=== PATIENT | male | born 1985 | race Caucasian/White ===

== ENCOUNTER 2018-11-30 05:03 | Observation (INO) | payer BC, OTHER ==
[2018-11-30] MEDS ORDERED: ONDANSETRON HCL INJ/PF 4 MG/2 ML SDV IV ONE (05:31)
[2018-11-30] MEDS ORDERED: MORPHINE SULFATE 10 MG/ML INJ IV ONE (05:31)
[2018-11-30] MEDS ORDERED: NORMAL SALINE 1000 ML 1,000 ML IV ONE (05:31)
[2018-11-30 05:51] LABS: ABSOLUTE BASOPHILS # (AUTO) 0.1 10^3/uL (0.0-0.2); ABSOLUTE EOSINOPHILS # (AUTO) 0.3 10^3/uL (0.0-0.6); ABSOLUTE LYMPHOCYTES (AUTO) 2.9 10^3/uL (0.5-4.7); ABSOLUTE MONOCYTES (AUTO) 0.9 10^3/uL (0.1-1.4); ABSOLUTE NEUT (AUTO) 9.4 10^3/uL (1.7-8.2); BASOPHILS % (AUTO) 0.4 % (0-2); EOSINOPHILS % (AUTO) 2.2 % (0-6); HEMATOCRIT 44.4 % (37.9-51.0); HEMOGLOBIN 15.2 g/dL (13.5-17.0); LYMPHOCYTES % (AUTO) 21.4 % (13-45); MEAN CORPUSCULAR HEMOGLOBIN 30.7 pg (27.0-33.4); MEAN CORPUSCULAR HGB CONC 34.3 g/dL (32.0-36.0); MEAN CORPUSCULAR VOLUME 89 fl (80-97); MONOCYTES % (AUTO) 6.9 % (3-13); PLATELET COUNT 284 10^3/uL (150-450); RED BLOOD COUNT 4.96 10^6/uL (4.35-5.55); SEGMENTED NEUTROPHILS % (AUTO) 69.1 % (42-78); TOTAL CELLS COUNTED % (AUTO) 100 %; WHITE BLOOD COUNT 13.6 10^3/uL (4.0-10.5)
[2018-11-30 06:09] LABS: ALANINE AMINOTRANSFERASE 28 U/L (21-72); ALBUMIN 3.9 g/dL (3.5-5.0); ALKALINE PHOSPHATASE 59 U/L (38-126); ANION GAP 8 (5-19); ASPARTATE AMINO TRANSFERASE 22 U/L (17-59); BILIRUBIN,DIRECT 0.2 mg/dL (0.0-0.4); BILIRUBIN,TOTAL 0.3 mg/dL (0.2-1.3); BLOOD UREA NITROGEN 7 mg/dL (7-20); CALCIUM 9.5 mg/dL (8.4-10.2); CARBON DIOXIDE 25 mmol/L (22-30); CHLORIDE 109 mmol/L (98-107); GLUCOSE 115 mg/dL (75-110); POTASSIUM 4.1 mmol/L (3.6-5.0)
[2018-11-30] MEDS ORDERED: HYDROMORPHONE HCL INJ/PF 2 MG/ML AMPULE IV ONE ×2 (06:24→07:33)
--- NOTE | 2018-11-30 06:34 | RADIOLOGY REPORT (SQ) ---
EXAM DESCRIPTION: US ABDOMEN LIMITED COMPLETED DATE/TME: 11/30/2018 05:32 CLINICAL HISTORY: RUQ pain, vomiting COMPARISON: None. TECHNIQUE: Real-time sonographic images of the right upper abdomen were obtained using a curved multihertz transducer. FINDINGS: Pancreas: The visualized portions of the pancreas are unremarkable. Vascular: The visualized portions of the aorta and IVC are unremarkable. Liver: The liver has normal contour and increased echogenicity. Hepatopedal flow in the portal vein. Findings confirmed with color and spectral Doppler imaging. The common bile duct measures 0.5 cm. Gallbladder: Echogenic structure in the gallbladder neck region compatible with a nonmobile gallstone. Possible reported sonographic Mullen sign. Echogenic layering material likely representing sludge. No gallbladder wall thickening. No pericholecystic fluid identified. Right Kidney: The right kidney measures 11.5 cm in length. No hydronephrosis, solid renal mass, or shadowing calculi. IMPRESSION: 1. Cholelithiasis with positive reported sonographic Mullen sign and gallbladder sludge. These findings could be seen with but are not diagnostic for acute cholecystitis. 2. Hepatic steatosis.
--- NOTE | 2018-11-30 07:33 | ER Document Report ---
ED GI/ - General Chief Complaint: Abdominal Pain Stated Complaint: ABDOMINAL PAIN, VOMITTING Time Seen by Provider: 11/30/18 05:30 Mode of Arrival: Ambulatory Information source: Patient Notes: Patient is a 33-year-old male presented to the emergency department with chief complaint of right upper quadrant pain that radiates through to his back that started at about 3 PM yesterday. Patient reports he has vomited at least 8-10 times prior to arrival. Patient denies any known medical history but does report that he has had similar pains in the past however he states they were not as severe. He denies any fevers or diarrhea. He does report prior to the onset of pain he did have a greasy meal. TRAVEL OUTSIDE OF THE [place] IN LAST 30 DAYS: No - Related Data Allergies/Adverse Reactions: No Known Allergies Allergy (Verified 03/14/12 09:00) Past Medical History - General Information source: Patient - Social History Smoking Status: Never Smoker Frequency of alcohol use: None Drug Abuse: None Family History: Reviewed & Not Pertinent Patient has suicidal ideation: No Patient has homicidal ideation: No - Medical History Medical History: Negative Renal/ Medical History: Denies: Hx Peritoneal Dialysis Surgical Hx: Negative - Immunizations Immunizations up to date: Yes Review of Systems - Review of Systems Constitutional: No symptoms reported EENT: No symptoms reported Cardiovascular: No symptoms reported Respiratory: No symptoms reported Gastrointestinal: Abdominal pain, Nausea, Vomiting Genitourinary: No symptoms reported Male Genitourinary: No symptoms reported Musculoskeletal: No symptoms reported Skin: No symptoms reported Hematologic/Lymphatic: No symptoms reported Neurological/Psychological: No symptoms reported Physical Exam - Vital signs Vitals: Temp Pulse Resp BP Pulse Ox 97.4 F 80 20 147/89 H 98 11/30/18 05:08 11/30/18 05:08 11/30/18 05:08 11/30/18 05:08 11/30/18 05:08 - Notes Notes: PHYSICAL EXAMINATION: GENERAL: Healthy appearing male doubled over vomiting. HEAD: Atraumatic, normocephalic. EYES: Pupils equal round and reactive to light, extraocular movements intact, sclera anicteric, conjunctiva are normal. ENT: Nares patent, oropharynx clear without exudates. Moist mucous membranes. NECK: Normal range of motion, supple without lymphadenopathy LUNGS: Breath sounds clear to auscultation bilaterally and equal. No wheezes rales or rhonchi. HEART: Regular rate and rhythm without murmurs ABDOMEN: Soft, nondistended abdomen. Tenderness to the right upper quadrant, positive Mullen sign. No masses appreciated. Musculoskeletal: Normal range of motion, no pitting or edema. No cyanosis. NEUROLOGICAL: Cranial nerves grossly intact. Normal speech, normal gait. Normal sensory, motor exams PSYCH: Normal mood, normal affect. SKIN: Warm, Dry, normal turgor, no rashes or lesions noted. Course - Re-evaluation Re-evalutation: 11/30/18 07:30 Laboratory 11/30/18 11/30/18 05:25 05:25 WBC 13.6 H RBC 4.96 Hgb 15.2 Hct 44.4 MCV 89 MCH 30.7 MCHC 34.3 RDW 14.0 Plt Count 284 Seg Neutrophils % 69.1 Lymphocytes % 21.4 Monocytes % 6.9 Eosinophils % 2.2 Basophils % 0.4 Absolute Neutrophils 9.4 H Absolute Lymphocytes 2.9 Absolute Monocytes 0.9 Absolute Eosinophils 0.3 Absolute Basophils 0.1 Sodium 142.4 Potassium 4.1 Chloride 109 H Carbon Dioxide 25 Anion Gap 8 BUN 7 Creatinine 0.82 Est GFR ( Amer) > 60 Est GFR (Non-Af Amer) > 60 Glucose 115 H Calcium 9.5 Total Bilirubin 0.3 Direct Bilirubin 0.2 Neonat Total Bilirubin Not Reportable Neonat Direct Bilirubin Not Reportable Neonat Indirect Bili Not Reportable AST 22 ALT 28 Alkaline Phosphatase 59 Total Protein 6.0 L Albumin 3.9 Lipase 152.0 Abdomen Ultrasound 11/30/18 05:32 IMPRESSION: 1. Cholelithiasis with positive reported sonographic Mullen sign and gallbladder sludge. These findings could be seen with but are not diagnostic for acute cholecystitis. 2. Hepatic steatosis. Patient accepted for admission by Dr. Mims, general surgery. Patient updated on plan of care, patient agreeable to same. - Vital Signs Vital signs: Temp Pulse Resp BP Pulse Ox 98.1 F 80 16 131/83 H 98 11/30/18 07:02 11/30/18 05:08 11/30/18 07:02 11/30/18 07:02 11/30/18 07:02 - Laboratory Result Diagrams: 11/30/18 05:25 11/30/18 05:25 Laboratory results interpreted by me: 07/28/19 07/28/19 05:25 05:25 WBC 13.6 H Absolute Neutrophils 9.4 H Chloride 109 H Glucose 115 H Total Protein 6.0 L Discharge - Discharge Clinical Impression: Cholelithiasis Qualifiers: Cholelithiasis location: other site Biliary obstruction: without biliary obstruction Qualified Code(s): K80.80 - Other cholelithiasis without obstruction Vomiting Qualifiers: Vomiting type: unspecified Vomiting Intractability: unspecified Nausea presence: with nausea Qualified Code(s): R11.2 - Nausea with vomiting, unspecified Leukocytosis Qualifiers: Leukocytosis type: unspecified Qualified Code(s): D72.829 - Elevated white blood cell count, unspecified Condition: Good Disposition: ADMITTED INPATIENT Admitting Provider: Surgicalist - DR. Mims Unit Admitted: Medical Floor
--- NOTE | 2018-11-30 07:50 | PDOC H&P ---
History of Present Illness History of Present Illness: HERBERT RODRIGUEZ is a 33 year old male who suddenly complained of right upper quadrant pains at 1 AM this morning after eating greasy food yesterday. This was associated with nausea and vomiting. Denies fever no chills no constipation. He did have loose stool this morning. He had same episodes in the past but much less severe and does not need hospitalization. Social History Smoking Status: Never Smoker Family History Family History: Reviewed & Not Pertinent Parental Family History Reviewed: Yes Children Family History Reviewed: No Sibling(s) Family History Reviewed.: No Medication/Allergy Home Medications: No Home Medications 03/14/12 Allergies/Adverse Reactions: No Known Allergies Allergy (Verified 03/14/12 09:00) Review of Systems Constitutional: PRESENT: as per HPI Physical Exam Vital Signs: Temp Pulse Resp BP Pulse Ox 98.1 F 80 16 131/83 H 98 11/30/18 07:02 11/30/18 05:08 11/30/18 07:02 11/30/18 07:02 11/30/18 07:02 Intake & Output 11/29/18 11/30/18 12/01/18 06:59 06:59 06:59 Intake Total 1000 Balance 1000 Weight 240 kg General appearance: PRESENT: mild distress Head exam: PRESENT: atraumatic Eye exam: PRESENT: conjunctiva pink Mouth exam: PRESENT: moist Neck exam: PRESENT: full ROM Respiratory exam: PRESENT: clear to auscultation christian Cardiovascular exam: PRESENT: RRR Pulses: PRESENT: normal radial pulses Vascular exam: PRESENT: normal capillary refill GI/Abdominal exam: PRESENT: soft, tenderness - RUQ Rectal exam: PRESENT: deferred Extremities exam: PRESENT: full ROM Musculoskeletal exam: PRESENT: ambulatory Neurological exam: PRESENT: alert, oriented to person, oriented to place, oriented to time, oriented to situation Psychiatric exam: PRESENT: appropriate affect Skin exam: PRESENT: normal color, warm Results Laboratory Results: 11/30/18 05:25 11/30/18 05:25 11/30/18 11/30/18 05:25 05:25 WBC 13.6 H RBC 4.96 Hgb 15.2 Hct 44.4 MCV 89 MCH 30.7 MCHC 34.3 RDW 14.0 Plt Count 284 Seg Neutrophils % 69.1 Lymphocytes % 21.4 Monocytes % 6.9 Eosinophils % 2.2 Basophils % 0.4 Absolute Neutrophils 9.4 H Absolute Lymphocytes 2.9 Absolute Monocytes 0.9 Absolute Eosinophils 0.3 Absolute Basophils 0.1 Sodium 142.4 Potassium 4.1 Chloride 109 H Carbon Dioxide 25 Anion Gap 8 BUN 7 Creatinine 0.82 Est GFR ( Amer) > 60 Est GFR (Non-Af Amer) > 60 Glucose 115 H Calcium 9.5 Total Bilirubin 0.3 AST 22 ALT 28 Alkaline Phosphatase 59 Total Protein 6.0 L Albumin 3.9 Lipase 152.0 Impressions: Abdomen Ultrasound 11/30/18 05:32 IMPRESSION: 1. Cholelithiasis with positive reported sonographic Mullen sign and gallbladder sludge. These findings could be seen with but are not diagnostic for acute cholecystitis. 2. Hepatic steatosis. Assessment & Plan - Diagnosis (1) Acute cholecystitis Is this a current diagnosis for this admission?: Yes (2) Cholelithiasis Qualifiers: Cholelithiasis location: other site Biliary obstruction: without biliary obstruction Qualified Code(s): K80.80 - Other cholelithiasis without obstruction Is this a current diagnosis for this admission?: Yes - Time Time Spent: 30 to 50 Minutes - Inpatient Certification Medical Necessity: Need For IV Fluids, Need for Pain Control, Need for IV Antibiotics, Need for Surgery - Plan Summary Plan Summary: Start Iv antibiotics Hydrate For possible lap blanca tomorrow
[2018-11-30 07:57] LABS: APPEARANCE,URINE CLEAR; BILIRUBIN,URINE NEGATIVE (NEGATIVE); COLOR,URINE YELLOW; GLUCOSE, URINE NEGATIVE (NEGATIVE); KETONES,URINE NEGATIVE (NEGATIVE); LEUKOCYTE ESTERASE,URINE NEGATIVE (NEGATIVE); NITRITE,URINE NEGATIVE (NEGATIVE); PROTEIN,URINE NEGATIVE (NEGATIVE); URINE SPECIFIC GRAVITY 1.016; UROBILINOGEN,URINE NEGATIVE mg/dL (<2.0)
[2018-11-30] MEDS ORDERED: HYDROMORPHONE HCL INJ/PF 2 MG/ML AMPULE ONE (14:08)
[2018-11-30] MEDS ORDERED: NORMAL SALINE 1000 ML 1,000 ML IV PRN (14:37)
[2018-11-30] MEDS ORDERED: ONDANSETRON HCL INJ/PF 4 MG/2 ML SDV IV PRN (14:38)
[2018-11-30] MEDS: PIPERACILLIN SODIUM/TAZOBACTAM 3.375 GM in NORMAL SALINE 100 ML IV SCH ×2 (17:12→22:38)
[2018-11-30] MEDS: HYDROMORPHONE HCL INJ/PF 2 MG/ML AMPULE IV PRN ×2 (18:11→22:38)
[2018-12-01] MEDS: HYDROMORPHONE HCL INJ/PF 2 MG/ML AMPULE IV PRN ×2 (03:01→07:40)
[2018-12-01] MEDS: PIPERACILLIN SODIUM/TAZOBACTAM 3.375 GM in NORMAL SALINE 100 ML IV SCH ×3 (03:01→15:31)
[2018-12-01] MEDS ORDERED: BUPIVACAINE HCL 0.25% /EPINEPHRINE INJ/PF 30 ML SDV ONE (09:29)
[2018-12-01] MEDS ORDERED: DEXAMETHASONE SOD PHOSPHATE INJ 4 MG/1 ML VIAL ONE (09:58)
[2018-12-01] MEDS ORDERED: GLYCOPYRROLATE 1 MG/5 ML VIAL ONE (09:58)
[2018-12-01] MEDS ORDERED: KETOROLAC TROMETHAMINE 60 MG/2 ML SDV ONE (09:58)
[2018-12-01] MEDS ORDERED: LIDOCAINE 2% INJ-PF (20 MG/ML) 2 ML AMPUL ONE (09:58)
[2018-12-01] MEDS ORDERED: ONDANSETRON HCL INJ/PF 4 MG/2 ML SDV ONE (09:58)
[2018-12-01] MEDS ORDERED: SUCCINYLCHOLINE CHLORIDE INJ 200 MG/10 ML VIAL ONE (09:58)
[2018-12-01] MEDS ORDERED: METOCLOPRAMIDE HCL INJ/PF 10 MG/2 ML SDV ONE (09:58)
[2018-12-01] MEDS ORDERED: NEOSTIGMINE METHYLSULFATE 10 MG/10 ML VIAL ONE (09:58)
[2018-12-01] MEDS ORDERED: ROCURONIUM BROMIDE INJ 50 MG/5 ML VIAL IV ONE (09:58)
[2018-12-01] MEDS ORDERED: FENTANYL CITRATE INJ/PF 250 MCG/5 ML AMPULE ONE (10:59)
[2018-12-01] MEDS ORDERED: MIDAZOLAM 2 MG/2 ML INJ ONE (10:59)
[2018-12-01] MEDS ORDERED: PROPOFOL INJ 200 MG/20 ML VIAL IV ONE (11:00)
[2018-12-01] MEDS ORDERED: EPHEDRINE SULFATE INJ 50 MG/1 ML AMPULE ONE (11:00)
[2018-12-01] MEDS ORDERED: DEXMEDETOMIDINE INJ 80 MCG/20 ML VIAL IV ONE (11:00)
[2018-12-01] MEDS ORDERED: MORPHINE SULFATE 10 MG/ML INJ IV PRN (12:15)
[2018-12-01] MEDS ORDERED: PROMETHAZINE HCL INJ 25 MG/1 ML VIAL IV PRN ×2 (12:15)
[2018-12-01] MEDS ORDERED: DIPHENHYDRAMINE HCL 50 MG/ML VIAL IV PRN (12:15)
[2018-12-01] MEDS ORDERED: MEPERIDINE HCL/PF INJ 25 MG/1 ML DISP.SYRIN IV PRN (12:15)
[2018-12-01] MEDS ORDERED: FENTANYL CITRATE INJ/PF 100 MCG/2 ML AMPUL IV PRN ×3 (12:15)
[2018-12-01] MEDS ORDERED: ONDANSETRON HCL INJ/PF 4 MG/2 ML SDV IV PRN (12:15)
[2018-12-01] MEDS ORDERED: HYDROMORPHONE HCL INJ/PF 2 MG/ML AMPULE ONE ×2 (13:00→13:43)
[2018-12-01] MEDS: MEPERIDINE HCL/PF INJ 25 MG/1 ML DISP.SYRIN ONE ×2 (13:10→13:15)
[2018-12-01] MEDS: FENTANYL CITRATE INJ/PF 100 MCG/2 ML AMPUL ONE ×2 (13:26→13:35)
--- NOTE | 2018-12-01 13:35 | OPERATIVE REPORT E ---
Operative Report NAME: HERBERT RODRIGUEZ : 1985 AGE: 33Y DATE OF SURGERY: 12/01/2018 ROOM: 209 PREOPERATIVE DIAGNOSES: 1. Acute cholecystitis. 2. Cholelithiasis. POSTOPERATIVE DIAGNOSES: 1. Acute cholecystitis. 2. Cholelithiasis. OPERATION: Laparoscopic cholecystectomy. SURGEON: HELDER HANCOCK M.D. ANESTHESIA: General. INDICATIONS: This is a 33-year-old male complaining of right upper quadrant pains yesterday. Ultrasound showed gallstones with thickened gallbladder wall. He was then admitted and started on IV antibiotics for laparoscopic cholecystectomy today. DESCRIPTION OF PROCEDURE: After adequate general anesthesia, the patient was placed in a supine position and the abdomen prepped and draped in the usual sterile fashion. Appropriate time out was then called. Next, an infraumbilical incision was made and the fascia identified and divided between 2 Chen clamps. Home trocar was inserted through the fascia to the abdominal cavity and CO2 insufflated to a pressure of 15 mmHg. The 2-0 Vicryl sutures were placed on each side of the fascia where the Chen clamps were. The Chen clamps were then released. The stay sutures were left in place. Next, the camera was inserted and 3 other trocars were placed, a 12 mm in the subxiphoid and two 5 mm in the right upper quadrant. The gallbladder was noted to be very distended, and with the use of a long needle some bile was aspirated, which allowed us to grasp the tip with a grasper and lift it over the liver. The infundibulum was then grasped and the cystic duct dissected and clipped with Hemoclips and divided between the Hemoclips. The cystic artery was identified, clipped proximally, and divided with the use of harmonic yoel. The gallbladder was then removed from the liver bed with the use of harmonic yoel and the distal part of the gallbladder actually just peeled off of the liver because there was not much areolar tissue in between the gallbladder and the liver. No active bleeding noted on the liver bed after irrigating it with saline. Surgicel was then placed over the liver bed for further assurance of hemostasis. The gallbladder was then completely removed from the liver bed and the gallbladder was then placed in an Endobag and pulled out through the umbilical port. All the trocars were then removed and CO2 allowed to come out of the trocar sites. No active bleeding noted from the trocar sites noted. The infraumbilical fascial defect was then closed with a [id number] suture using 0 Vicryl and the two stay sutures were tied together for better closure. Local anesthesia was infiltrated over the fascia and over the skin incisions. Skin incisions were then closed with running subcuticular closure using 4-0 Vicryl undyed. Steri-Strips were placed over the operative sites. Needle, instrument, and sponge counts were all correct. Estimated blood loss was no more than 15 mL. The patient was then brought to the recovery room in satisfactory condition. DICTATING PHYSICIAN: HELDER HANCOCK M.D. [id number] PHY#: [id number] ID: [id number] JOB#: [id number] ACCT: [id number] cc:HELDER HANCOCK M.D. >
[2018-12-01] MEDS ORDERED: OXYCODONE-ACETAMINOPHEN 5-325 MG TABLET PO PRN (13:40)
[2018-12-01] MEDS ORDERED: HYDROMORPHONE HCL INJ/PF 2 MG/ML AMPULE IV PRN (14:00)
[2018-12-01 18:24] VITALS: BP 147/89
--- NOTE | 2018-12-01 21:55 | DISCHARGE SUMMARY E ---
Discharge Summary NAME: HERBERT RODRIGUEZ : 1985 AGE: 33Y ADMITTED: 11/30/2018 DISCHARGED: 12/01/2018 FINAL DIAGNOSES: 1. Acute cholecystitis. 2. Cholelithiasis. PROCEDURE: Laparoscopic cholecystectomy, 12/01/2018. Surgeon: Fransisco Mims MD HOSPITAL COURSE: This is a 33-year-old male complaining of right upper quadrant pains on the day of admission. Ultrasound showed gallstones with acute cholecystitis. Patient then underwent laparoscopic cholecystectomy on the morning of 12/01/2018. His postoperative course was uneventful and discharged improved later that same day, 12/01/2018, with the above final diagnoses. Patient was given a prescription for Toradol 10 mg p.o. q.6 hours p.r.n. for pain x12 and advised to follow up in the surgical clinic in 2 weeks. DICTATING PHYSICIAN: FRANSISCO MIMS M.D. [id number] PHY#: [id number] ID: [id number] JOB#: [id number] ACCT: [id number] cc:FRANSISCO MIMS M.D. >
== END 2018-12-01 18:33 | disposition home or self-care (01) ==
LOC: ER 05:03 → EH 08:07 → INTOOBSV 08:07 → 2N 11:49
PROVIDERS: ADMIT Surgery; ATTEND Surgery
PROC: 0FT44ZZ Resection of Gallbladder, Percutaneous Endoscopic Approach (ICD-10-PCS; principal; 2018-12-01 10:00)
DX: K80.12 Calculus of gallbladder with acute and chronic cholecystitis without obstruction (principal)
CPT/HCPCS: 99285; 86900; 86901; 36415; 86850; 83690; 85025; 80053; 81001; 88304 ×2; 76705; 47562; G0378 ×3; J2250; J3490 ×5; J1100; J1885; J3010 ×2; J2175; J2765; J2270; J2710; J1170 ×2; J0330; J2405 ×2; J7050 ×2; J7030; J2704; J2543 ×2; 790